=== PATIENT | female | born 2000 | race Caucasian/White ===

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

== ENCOUNTER 2022-03-29 12:49 | Outpatient (CLI) | payer OTHER, SELFPAY ==
[2022-03-29 13:10] LABS: Basophils Percent Auto 0.4 % (0.2-1.2); Eosinophils Absolute Auto 0.1 K/mm3 (0-0.3); Eosinophils Percent Auto 1.6 % (0-4.4); Hematocrit 42.3 % (37.0-47.0); Hemoglobin 14.8 g/dL (12.0-15.0); Immature Granulocyte Absolute 0.02 K/mm3 (0.00-0.031); Immature Granulocyte Percent A 0.3 % (0-0.5); Lymphocytes Absolute Auto 2.94 K/mm3 (0.9-3.2); Mean Corpuscular Hemoglobin 32.5 pg (26-34); Mean Platelet Volume 9.3 fl (7.4-10.4); Monocytes Absolute Auto 0.5 K/mm3 (0.1-0.6); Neutrophils Absolute Auto 4.1 K/mm3 (1.3-6.7); Neutrophils Percent Auto 52.7 % (45.5-73.1); Platelet Count Result 209 k/mm3 (150-375); Red Blood Count 4.55 M/mm3 (4.2-5.4); Red Cell Distribution Width 11.4 % (11.5-14.5); White Blood Count 7.7 K/mm3 (4.5-10.0)
[2022-03-29 13:20] LABS: SPREG INTERNAL CONTROL Positive; Serum Qual hCG Negative
[2022-03-29 13:21] LABS: Alanine Aminotransferase 17 U/L (6-35); Albumin Level 4.6 g/dL (3.7-5.6); Alkaline Phosphatase 63 U/L (45-116); Anion Gap 14 mmol/L (8-16); Aspartate Amino Transferase 23 U/L (14-36); Bilirubin,Total 0.4 mg/dL (0.2-1.3); Blood Urea Nitrogen 10 mg/dL (8-21); Calcium 9.3 mg/dL (8.9-10.7); Carbon Dioxide 21 mmol/L (22-30); Chloride 103 mmol/L (98-107); Estimated Glomerular Filt Rate > 60; Glucose 100 mg/dL (65-110); Potassium 3.6 mmol/L (3.4-5.0); Sodium 138 mmol/L (134-143)
[2022-03-29 13:41] LABS: Hemoglobin A1C 4.7 % (<5.7)
== END 2022-03-29 12:50 | disposition home or self-care (01) ==
LOC: ANHLAB 12:52
PROVIDERS: PCP Family Medicine; Visit Provider Family Medicine
DX: R42 Dizziness and giddiness (principal); Z83.3 Family history of diabetes mellitus
CPT/HCPCS: 36415; 80053; 83036; 84443; 84703; 85025

== ENCOUNTER 2022-04-03 18:55 | Emergency (ER) | payer OTHER, SELFPAY ==
[2022-04-03] VITALS (12 sets, daily range): BP systolic 91–122; BP diastolic 54–71; PULSE 98; RESP 20; TEMP 36.7; O2SAT 96–100
--- NOTE | ~2022-04-03 | CT_ITS ---
EXAMINATION: CT brain wo con INDICATION: Headache COMPARISON: None TECHNIQUE: Standard unenhanced head CT. The dose-length product (DLP) was 605.33 mGy-cm. The mA was a djusted according to patient size. Iterative reconstruction technique was employed. FINDINGS: There is no intracranial hemorrhage, acute infarction, or abnormal mass lesion. The ventric les are normal. There is no abnormal mass effect or midline shift. The washburn-white matter differentiat ion is normal. The basal cisterns are patent. The orbits are normal. The paranasal sinuses, mastoids and calvarium are normal. IMPRESSION: 1. No acute intracranial abnormality. Reviewed, dictated and finalized at location F.
--- NOTE | 2022-04-03 22:07 | ED.HA ---
HPI - Headache General Chief Complaint: Headache <TODD Hopkins Last Filed: 04/03/22 23:43> Stated Complaint: migraine for over a week <TODD Hopkins Last Filed: 04/03/22 23:43> Time Seen by Provider: 04/03/22 21:43 <TODD Hopkins Last Filed: 04/03/22 23:43> Source: patient <TODD Hopkins Last Filed: 04/03/22 23:43> Mode of arrival: ambulatory <TODD Hopkins Last Filed: 04/03/22 23:43> Limitations: no limitations <TODD Hopkins Last Filed: 04/03/22 23:43> History of Present Illness HPI Narrative: This is a 21-year-old female that presents to the emergency department for worsening headaches. Reports longstanding history of headaches. She was recently prescribed rizatriptan for this with little relief. She follows with her primary doctor for her headaches. She has not taken anything for her headache yet today. Associated with some nausea. Reports the pain is achy in nature. Denies fever, vision changes, vomiting, numbness, or weakness. <TODD Hopkins Last Filed: 04/03/22 23:43> Related Data Home Medications: Home Medications Medication Instructions Recorded Confirmed medroxyprogesterone 150 mg/mL mg IM 09/04/19 03/21/22 intramuscular suspension <TODD Hopkins Last Filed: 04/03/22 23:43> Allergies/Adverse Reactions: Allergies Allergy/AdvReac Type Severity Reaction Status Date / Time venom-wasp Allergy Intermediate Anaphylactic Verified 04/03/22 19:17 Shock fluticasone [From Flonase] AdvReac Mild epistaxis Verified 04/03/22 19:17 Bumble Bee Allergy Mild Anaphylactic Uncoded 04/03/22 19:17 Shock <TODD Hopkins Last Filed: 04/03/22 23:43> Review of Systems Review of Systems: CONSTITUTIONAL: Denies fever EYES: Denies visual changes GASTROINTESTINAL: Denies vomiting NEUROLOGIC: Reports headache. Denies numbness, or weakness. <Ryann Smith PA-C - Last Filed: 04/03/22 23:43> All systems reviewed & are unremarkable except as noted in HPI and below <Ryann Smith PA-C - Last Filed: 04/03/22 23:43> PMFSH Past Medical History Medical History: Medical History (Updated 04/04/22 @ 00:00 by Background Dawallace) History of migraine <Ryann Smith PA-C - Last Filed: 04/03/22 23:43> Surgical History Surgical History: Surgical History H/O wisdom tooth extraction No significant past surgical history <Ryann Smith PA-C - Last Filed: 04/03/22 23:43> Family History Family History: Family History Grandparent Hypertension Acute myocardial infarction Grandparent Hypertension Mother Lung disease <Ryann Smith PA-C - Last Filed: 04/03/22 23:43> Social History Social History: Social History Smoking status: Never smoker Alcohol intake: never Substance use: never 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 HEAD: Normocephalic, atraumatic. EYES: PERRLA and EOMI. ENT: Nares clear, no rhinorrhea or epistaxis. Mucous membranes moist. Oropharynx without tonsillar hypertrophy exudate or other lesions. Bilateral TMs pearly washburn non-bulging NECK: Supple. No adenopathy or masses. CHEST: Clear to auscultation. No respiratory distress. No wheezes rales or rhonchi HEART: Regular rate and rhythm. No murmur heard. Normal peripheral pulses. EXTREMITIES: Normal range of motion. No edema. Strength equal in bilateral upper and lower extremities (5/5) SKIN: Warm, dry, no rash. NEURO: No focal deficits. Alert and oriented x3. Cranial ne
[2022-04-03] MEDS: diphenhydrAMINE HCl INJ 50 MG/ML VIAL 25 MG IV PUSH (22:44)
[2022-04-03] MEDS: KETOROLAC 15 MG/ML VIAL (*BKC) IV PUSH (22:44)
[2022-04-03] MEDS: SODIUM CHLORIDE 0.9% IV 1,000 ML 999 ML IV CONT (22:44)
[2022-04-03] MEDS: METOCLOPRAMIDE HCL INJ 10 MG/2 ML VIAL IV PUSH (22:44)
--- NOTE | 2022-04-03 23:39 | PC.NURSE ---
Patient resting at this time
--- NOTE | 2022-04-25 08:30 | PC.NURSE ---
LATE ENTRY This note is being entered to document information to the patient's record. The following information was omitted on [04/03/22], by [Rhea Rosenbaum RN]. IV NS stopped at 2330
== END 2022-04-03 23:58 | disposition home or self-care (01) ==
PROVIDERS: Emergency Provider Preventive Medicine Aerospace Medicine; PCP Family Medicine
DX: R51.9 Headache, unspecified (principal)
CPT/HCPCS: 70450; 96361; 96365; 96375; 99284; J0131; J1200; J1885; J2765; J7030

== ENCOUNTER 2022-05-09 08:26 | Emergency (ER) | payer OTHER, SELFPAY ==
[2022-05-09 08:35] VITALS: BP 112/59; PULSE 95; RESP 16; TEMP 36.9; O2SAT 100
--- NOTE | 2022-05-09 08:59 | ED.URI ---
HPI - URI/Sore Throat General Chief Complaint: Upper Respiratory Infection Stated Complaint: Sore Throat, Fever Time Seen by Provider: 05/09/22 08:59 History of Present Illness HPI Narrative: 21-year-old female presented for complaint of sore throat, headache, and fever for 3 days. Endorses fever up to 101.6 yesterday. She has taken Tylenol for symptoms. She endorses her boyfriend had similar symptoms last week. She denies vomiting, diarrhea, cough, shortness of breath or wheezing. She denies difficulty swallowing secretions. Related Data Home Medications Medication Instructions Recorded Confirmed medroxyprogesterone 150 mg/mL 150 mg IM DIRECTED 09/04/19 05/09/22 intramuscular suspension escitalopram oxalate 10 mg tablet 10 mg PO DAILY 05/09/22 05/09/22 Allergies Allergy/AdvReac Type Severity Reaction Status Date / Time venom-wasp Allergy Intermediate Anaphylactic Verified 04/03/22 19:17 Shock fluticasone [From Flonase] AdvReac Mild epistaxis Verified 04/03/22 19:17 Bumble Bee Allergy Mild Anaphylactic Uncoded 04/03/22 19:17 Shock Review of Systems Review of Systems: CONSTITUTIONAL: Reports fever EYES: Denies visual changes, redness, or discharge. ENT: Denies rhinorrhea, congestion, or otalgia. CARDIOVASCULAR: Denies chest pain, palpitations, or edema. RESPIRATORY: Denies dyspnea. GASTROINTESTINAL: Denies abdominal pain, vomiting, or diarrhea. SKIN: Denies rash, itching, or wounds. MUSCULOSKELETAL: Denies back pain, joint pain, or myalgia. 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 TMs pearly washburn with normal light reflex bilaterally; no tragal tenderness. Oropharynx erythematous Tonsillar swelling 2+ and exudate. No drooling, no hoarseness, no trismus, uvula midline. No tripod positioning, hot potato voice, or soft palate swelling. NECK: Supple. Bilateral anterior cervical lymphadenopathy CHEST: Clear to auscultation, breath sounds equal. No respiratory distress, speaks in full sentences. HEART: Regular rate and rhythm. No murmur heard. SKIN: Warm, dry, no rash. NEURO: Alert and oriented x3. Course Course Emergency Course: Patient is aware of diagnosis, understands and agrees to treatment plan. Anticipatory guidance given. Patient agrees to follow-up as directed and is aware of reasons to seek care at the emergency department. Portions of this record may have been created with voice recognition software Level of Care: Express Care Visit Vital Signs Vital signs: Vital Signs Temperature 98.5 F 05/09/22 08:35 Pulse Rate 95 05/09/22 08:35 Respiratory Rate 16 05/09/22 08:35 Blood Pressure 112/59 L 05/09/22 08:35 Pulse Oximetry 100 05/09/22 08:35 Oxygen Delivery Room Air 05/09/22 08:35 Temperature 98.5 F 05/09/22 08:35 Pulse Rate 95 05/09/22 08:35 Respiratory Rate 16 05/09/22 08:35 Blood Pressure 112/59 L 05/09/22 08:35 Pulse Oximetry 100 05/09/22 08:35 Oxygen Delivery Room Air 05/09/22 08:35 MDM - URI/Sore Throat MDM Narrative Medical decision making narrative: Positive tr
== END 2022-05-09 09:20 | disposition home or self-care (01) ==
PROVIDERS: Emergency Provider Nurse Practitioner Family; PCP Family Medicine
DX: J02.0 Streptococcal pharyngitis (principal); Z20.822 Contact with and (suspected) exposure to COVID-19
CPT/HCPCS: 87426; 87804; 87880; 99213; C9803; G0463

== ENCOUNTER 2022-11-26 13:46 | Emergency (ER) | payer OTHER, SELFPAY ==
[2022-11-26] VITALS (22 sets, daily range): BP systolic 94–115; BP diastolic 47–68; PULSE 76–99; RESP 13–24; TEMP 37.2; O2SAT 97–100
--- NOTE | ~2022-11-26 | XR_ITS ---
EXAMINATION: XR chest 2V DATE: 11/26/2022 15:24 INDICATION: Chest pain and dizziness TECHNIQUE: PA and lateral views of the chest were obtained. COMPARISON: Chest radiograph dated 09/04/2019 FINDINGS: The lungs are clear with no focal airspace opacities, pulmonary edema, pleural effusion or pneumothor ax. The cardiomediastinal silhouette is normal. Visualized bones and soft tissues are unremarkable. IMPRESSION: 1. No acute cardiopulmonary disease. Reviewed, dictated and finalized at location B.
--- NOTE | 2022-11-26 14:18 | ECG_ITS ---
Measurements Intervals [place] Rate: 91 P: 67 AL: 129 QRS: 79 QRSD: 92 T: 55 QT: 334 QTc: 412 Interpretive Statements SINUS RHYTHM NORMAL ECG NO PREVIOUS ECG AVAILABLE FOR COMPARISON Electronically Signed On 11-26-2022 14:34:09 CDT by Orion Wilkins D.O.
[2022-11-26 14:40] LABS: Basophils Percent Auto 0.4 % (0.2-1.2); Eosinophils Absolute Auto 0.1 K/mm3 (0-0.3); Eosinophils Percent Auto 1.5 % (0-4.4); Hematocrit 41.5 % (37.0-47.0); Immature Granulocyte Absolute 0.02 K/mm3 (0.00-0.031); Immature Granulocyte Percent A 0.3 % (0-0.5); Lymphocytes Absolute Auto 2.49 K/mm3 (0.9-3.2); Lymphocytes Percent Auto 33.8 % (18.3-44.2); Mean Corpuscular HGB Conc 33.7 g/dl (32-36); Mean Corpuscular Hemoglobin 32.9 pg (26-34); Mean Corpuscular Volume 97.4 fl (80-100); Mean Platelet Volume 9.3 fl (7.4-10.4); Monocytes Absolute Auto 0.6 K/mm3 (0.1-0.6); Monocytes Percent Auto 7.6 % (2.6-8.5); Neutrophils Absolute Auto 4.2 K/mm3 (1.3-6.7); Neutrophils Percent Auto 56.4 % (45.5-73.1); Platelet Count Result 202 k/mm3 (150-375); Red Blood Count 4.26 M/mm3 (4.2-5.4); Red Cell Distribution Width 11.9 % (11.5-14.5); White Blood Count 7.4 K/mm3 (4.5-10.0)
[2022-11-26 14:45] LABS: Prothrombin Time 13.5 Seconds (11.1-14.7)
[2022-11-26 14:46] LABS: Alanine Aminotransferase 32 U/L (6-35); Albumin Level 4.4 g/dL (3.5-5.1); Alkaline Phosphatase 62 U/L (38-126); Anion Gap 7 mmol/L (8-16); Aspartate Amino Transferase 26 U/L (14-36); Bilirubin,Total 0.4 mg/dL (0.2-1.3); Blood Urea Nitrogen 11 mg/dL (7-17); Calcium 9.3 mg/dL (8.4-10.2); Carbon Dioxide 29 mmol/L (22-30); Chloride 103 mmol/L (98-107); Estimated CRCL calculation 99 ml/min; Estimated Glomerular Filt Rate > 60; Glucose 90 mg/dL (65-110); Lipase 68 U/L (23-300); Partial Thromboplastin Time 33.7 SECONDS (22.3-36.8); Potassium 3.6 mmol/L (3.4-5.0); Sodium 139 mmol/L (137-145)
[2022-11-26 14:57] LABS: Troponin I < 0.012 ng/mL (0.000-0.034)
[2022-11-26 18:10] LABS: Troponin I < 0.012 ng/mL (0.000-0.034)
--- NOTE | 2022-11-26 19:00 | ED.DIZZY ---
HPI - Dizziness General Chief Complaint: Dizziness <TODD Marroquin Last Filed: 11/27/22 01:32> Stated Complaint: dizzy <TODD Marroquin Last Filed: 11/27/22 01:32> Time Seen by Provider: 11/26/22 17:35 <TODD Marroquin Last Filed: 11/27/22 01:32> Source: patient <TODD Marroquin Last Filed: 11/27/22 01:32> Mode of arrival: ambulatory <TODD Marroquin Last Filed: 11/27/22 01:32> Limitations: no limitations <TODD Marroquin Last Filed: 11/27/22 01:32> History of Present Illness HPI Narrative: This is a 22-year-old female who presents to the ED with chief complaint of lightheadedness x2 days. Patient reports she had a bad sunburn on her forehead, face and ears after attending an all day event on Saturday. Reports having some lightheadedness and feeling faint. Also reports some nausea. Feels like she may have sun poisoning. Reports intermittent chest pains but is not having any now. Denies shortness of breath, fevers, chills, abdominal pain, diarrhea. <TODD Marroquin Last Filed: 11/27/22 01:32> Related Data Home Medications: Home Medications Medication Instructions Recorded Confirmed escitalopram oxalate 10 mg tablet 10 mg PO DAILY 05/09/22 05/09/22 <TODD Marroquin Last Filed: 11/27/22 01:32> Allergies/Adverse Reactions: Allergies Allergy/AdvReac Type Severity Reaction Status Date / Time venom-wasp Allergy Intermediate Anaphylactic Verified 11/28/22 11:45 Shock fluticasone [From Flonase] AdvReac Mild epistaxis Verified 11/28/22 11:45 Bumble Bee Allergy Mild Anaphylactic Uncoded 11/28/22 11:45 Shock <OTDD Marroquin Last Filed: 11/27/22 01:32> Review of Systems Review of Systems: CONSTITUTIONAL: Denies fever, chills, or sweats. EYES: Denies visual changes, redness, or discharge. ENT: Denies rhinorrhea, congestion, sore throat, or otalgia. CARDIOVASCULAR: Denies chest pain, palpitations, or edema. RESPIRATORY: Denies cough or dyspnea. GASTROINTESTINAL: See HPI GENITOURINARY: Denies dysuria or hematuria. SKIN: Denies rash or itching. MUSCULOSKELETAL: Denies back pain, joint pain, or myalgia. NEUROLOGIC: Denies headache, numbness, dizziness, or weakness. PSYCHIATRIC: Denies anxiety or depression. <Sami Martines PA-C - Last Filed: 11/27/22 01:32> PMFSH Past Medical History Medical History: Medical History History of migraine <TODD Marroquin Last Filed: 11/27/22 01:32> Surgical History Surgical History: Surgical History H/O wisdom tooth extraction No significant past surgical history <TODD Marroquin Last Filed: 11/27/22 01:32> Family History Family History: Family History Grandparent Hypertension Acute myocardial infarction Grandparent Hypertension Mother Lung disease <TODD Marroquin Last Filed: 11/27/22 01:32> Social History Social History: Social History Smoking status: Never smoker Alcohol intake: never Substance use: never Living arrangements: with family Occupation/Education: occupation 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 HEAD: Normocephalic, atraumatic. EYES: PERRLA and EOMI. ENT: Nares clear, no rhinorrhea or epistaxis. Mucous membranes moist. Oropharynx without tonsillar hypertrophy exudate or other lesions. NECK: Supple. No adenopathy or masses. CHEST: No respiratory distress. Clear to auscultation. No wheezes rales or rhonchi HEART: Regular rate and rhyt
[2022-11-26] MEDS: ONDANSETRON INJ 4 MG/2 ML VIAL IV PUSH (19:39)
[2022-11-26] MEDS: SODIUM CHLORIDE 0.9% IV 1,000 ML 999 ML IV CONT ×2 (19:39→20:33)
== END 2022-11-26 21:19 | disposition home or self-care (01) ==
PROVIDERS: Emergency Medicine; Emergency Provider Physician Assistant; PCP Family Medicine
DX: R42 Dizziness and giddiness (principal); L55.0 Sunburn of first degree
CPT/HCPCS: 36415; 71046; 80053; 83690; 84484; 85025; 85610; 85730; 93005; 96361; 96374; 99284; J2405; J7030

== ENCOUNTER 2023-05-13 16:58 | Outpatient (CLI) | payer OTHER, SELFPAY ==
[2023-05-13 17:22] LABS: Basophils Percent Auto 0.2 % (0.2-1.2); Eosinophils Absolute Auto 0.1 K/mm3 (0-0.3); Eosinophils Percent Auto 1.2 % (0-4.4); Hematocrit 41.8 % (37.0-47.0); Hemoglobin 13.9 g/dL (12.0-15.0); Immature Granulocyte Absolute 0.03 K/mm3 (0.00-0.031); Immature Granulocyte Percent A 0.3 % (0-0.5); Lymphocytes Absolute Auto 2.47 K/mm3 (0.9-3.2); Lymphocytes Percent Auto 28.7 % (18.3-44.2); Mean Corpuscular HGB Conc 33.3 g/dl (32-36); Mean Corpuscular Hemoglobin 32.1 pg (26-34); Mean Corpuscular Volume 96.5 fl (80-100); Mean Platelet Volume 9.4 fl (7.4-10.4); Monocytes Absolute Auto 0.6 K/mm3 (0.1-0.6); Monocytes Percent Auto 6.8 % (2.6-8.5); Neutrophils Absolute Auto 5.4 K/mm3 (1.3-6.7); Neutrophils Percent Auto 62.8 % (45.5-73.1); Platelet Count Result 202 k/mm3 (150-375); Red Blood Count 4.33 M/mm3 (4.2-5.4); Red Cell Distribution Width 11.4 % (11.5-14.5); White Blood Count 8.6 K/mm3 (4.5-10.0)
[2023-05-13 17:41] LABS: Alanine Aminotransferase 17 U/L (6-35); Albumin Level 4.8 g/dL (3.5-5.1); Alkaline Phosphatase 60 U/L (38-126); Anion Gap 9 mmol/L (8-16); Aspartate Amino Transferase 21 U/L (14-36); Bilirubin,Total 0.4 mg/dL (0.2-1.3); Blood Urea Nitrogen 16 mg/dL (7-17); Calcium 9.4 mg/dL (8.4-10.2); Carbon Dioxide 22 mmol/L (22-30); Chloride 106 mmol/L (98-107); Creatine Kinase 81 U/L (30-135); Estimated Glomerular Filt Rate > 60; Glucose 85 mg/dL (65-110); Potassium 3.8 mmol/L (3.4-5.0); Sodium 137 mmol/L (137-145)
[2023-05-13 18:16] LABS: Rheumatoid Factor < 12.0 IU/ML (<12)
[2023-05-13 18:32] LABS: Erythrocyte Sedimentation Rate 15 mm/hr (0-20)
[2023-05-15 13:08] LABS: Anti Cyclic Citrullinated Pept <16 Units (<20)
== END 2023-05-13 16:59 | disposition home or self-care (01) ==
LOC: ANHLAB 17:00
PROVIDERS: PCP Family Medicine; Visit Provider Physician Assistant Medical
DX: M25.50 Pain in unspecified joint (principal); M79.10 Myalgia, unspecified site; R53.83 Other fatigue
CPT/HCPCS: 36415; 80053; 82550; 82607; 84443; 85025; 85652; 86038; 86200; 86430

== ENCOUNTER 2023-10-29 08:03 | Outpatient (CLI) | payer OTHER, SELFPAY ==
--- NOTE | 2023-11-05 16:25 | WPDHOLTEREM ---
Holter/Event Monitor Holter/Event Monitor Date of procedure: 10/29/23 Holter/Event Procedure: 48 Hr Holter Monitor Indications: Chest pain Conclusion: 1. 48 hour holter monitor on 10/29/23. 2. Underlying rhythm is sinus rhythm with sinus arrhythmia. HR range 53-164 bpm; average HR 90 bpm. HR at 164 bpm was at 18:37. 3. There are 1 premature supraventricular complexes and 2 supraventricular couplets. No supraventricular tachycardia. 4. No premature ventricular complexes. No ventricular tachycardia. 5. No sinoatrial or atrioventricular blocks. No significant pauses greater than 2 seconds. 6. Patient reports symptoms of chest pain which demonstrate sinus rhythm, HR range 75-133 bpm.
== END 2023-10-29 08:04 | disposition home or self-care (01) ==
PROVIDERS: PCP Family Medicine; Visit Provider Nurse Practitioner Family
DX: R07.89 Other chest pain (principal); R00.0 Tachycardia, unspecified
CPT/HCPCS: 93225; 93226

== ENCOUNTER 2024-01-27 09:04 | Emergency (ER) | payer OTHER, BC, SELFPAY ==
--- NOTE | ~2024-01-27 | XR_ITS ---
EXAMINATION: XR chest 2V DATE: 01/27/2024 09:48 INDICATION: Chest pain. TECHNIQUE: Frontal and lateral views of the chest were obtained. COMPARISON: Chest 2 views 11/26/2022 FINDINGS: There is no pneumonia, pleural effusion, or pneumothorax. The heart size is normal. IMPRESSION: 1. No acute cardiopulmonary disease. Reviewed, dictated and finalized at location A.
[2024-01-27 09:09] VITALS: BP 137/86; PULSE 100; RESP 16; TEMP 36.4; O2SAT 100
--- NOTE | 2024-01-27 09:09 | ECG_ITS ---
Test Date: 2024-01-27 09:14:40 Measurements Intervals [place] Rate: 95 P: 61 MS: 142 QRS: 81 QRSD: 88 T: 49 QT: 324 QTc: 407 Interpretive Statements SINUS RHYTHM NORMAL ECG No previous ECG available for comparison Electronically Signed On 01-27-2024 11:33:22 CDT by Orion Wilkins D.O.
[2024-01-27 09:45] LABS: Basophils Percent Auto 0.3 % (0.2-1.2); Eosinophils Absolute Auto 0.1 K/mm3 (0-0.3); Hematocrit 46.1 % (37.0-47.0); Hemoglobin 15.4 g/dL (12.0-15.0); Immature Granulocyte Absolute 0.03 K/mm3 (0.00-0.031); Immature Granulocyte Percent A 0.4 % (0-0.5); Lymphocytes Absolute Auto 1.92 K/mm3 (0.9-3.2); Lymphocytes Percent Auto 25.1 % (18.3-44.2); Mean Corpuscular HGB Conc 33.4 g/dl (32-36); Mean Corpuscular Hemoglobin 32.4 pg (26-34); Mean Corpuscular Volume 96.8 fl (80-100); Monocytes Absolute Auto 0.4 K/mm3 (0.1-0.6); Monocytes Percent Auto 5.6 % (2.6-8.5); Neutrophils Absolute Auto 5.2 K/mm3 (1.3-6.7); Neutrophils Percent Auto 67.6 % (45.5-73.1); Platelet Count Result 194 k/mm3 (150-375); Red Blood Count 4.76 M/mm3 (4.2-5.4); Red Cell Distribution Width 11.9 % (11.5-14.5); White Blood Count 7.6 K/mm3 (4.5-10.0)
[2024-01-27 09:50] VITALS: BP 127/81; PULSE 68; RESP 16; O2SAT 99
[2024-01-27 09:55] LABS: Alanine Aminotransferase 19 U/L (6-35); Albumin Level 4.8 g/dL (3.5-5.1); Alkaline Phosphatase 77 U/L (38-126); Anion Gap 8 mmol/L (4-12); Aspartate Amino Transferase 21 U/L (14-36); Bilirubin,Total 0.6 mg/dL (0.2-1.3); Blood Urea Nitrogen 13 mg/dL (7-17); Calcium 9.3 mg/dL (8.4-10.2); Carbon Dioxide 25 mmol/L (22-30); Chloride 108 mmol/L (98-107); Estimated CRCL calculation 82 ml/min; Estimated Glomerular Filt Rate > 60; Glucose 98 mg/dL (65-110); Potassium 3.6 mmol/L (3.4-5.0); Sodium 141 mmol/L (137-145)
[2024-01-27 10:01] VITALS: BP 132/86; PULSE 72; RESP 17; O2SAT 100
[2024-01-27 10:04] LABS: Prothrombin Time 13.5 Seconds (11.1-14.7)
[2024-01-27 10:05] LABS: Partial Thromboplastin Time 31.9 Seconds (22.3-36.8)
[2024-01-27 10:07] LABS: Troponin I < 0.012 ng/mL (0.000-0.034)
[2024-01-27 10:08] VITALS: O2SAT 100
[2024-01-27 10:12] LABS: D Dimer 0.27 ug/mL (<0.48)
[2024-01-27 10:15] VITALS: O2SAT 100
[2024-01-27 10:16] VITALS: BP 130/59; O2SAT 100
--- NOTE | 2024-01-27 10:31 | ED.CHESTPAIN ---
HPI - Chest Pain General Chief Complaint: Chest Pain Stated Complaint: chest pain Time Seen by Provider: 01/27/24 09:32 Source: patient Mode of arrival: ambulatory Limitations: no limitations History of Present Illness HPI narrative: patient is a 23-year-old female who presents the ED with report of anterior chest pain. Patient reports having intermittent episodes of chest pain since Saturday. She reports pain typically on right-sided chest, but does occasionally occur in her midsternal and left-sided chest. Pain worse with certain movements. She notes she did exercise her chest at the gym last Saturday, but denied any abnormal or overly strenuous exercises. denies alleviating factors. Reports painful occasionally worse with deep breathing. Reports occasional shortness of breath. Denies lower extremity pain or swelling, cough, fevers. Denies previous hx of blood clots. Denies recent long distance travel. She is on depo-provera. Mother has hx of pulmonary hypertension. No FHx of heart disease. Related Data Home Medications Medication Instructions Recorded Confirmed medroxyprogesterone 150 mg/mL 150 mg IM [id number] 05/10/23 11/29/23 intramuscular suspension (Depo-Provera) Allergies Allergy/AdvReac Type Severity Reaction Status Date / Time venom-wasp Allergy Intermediate Anaphylactic Verified 01/27/24 09:30 Shock rizatriptan [From Maxalt] AdvReac Severe Nausea Verified 01/27/24 09:30 fluticasone [From Flonase] AdvReac Mild epistaxis Verified 01/27/24 09:30 Bumble Bee Allergy Mild Anaphylactic Uncoded 10/15/23 08:22 Shock Review of Systems Review of Systems: CONSTITUTIONAL: Denies fever, chills, or sweats. ENT: Denies rhinorrhea, congestion, sore throat. CARDIOVASCULAR: see HPI. RESPIRATORY: See HPI. GASTROINTESTINAL: Denies abdominal pain, nausea, vomiting, or diarrhea. MUSCULOSKELETAL: Denies back pain, extremity pain, myalgia. All systems reviewed & are unremarkable except as noted in HPI and below PMFSH Past Medical History Medical History History of migraine Muscle cramps Surgical History Surgical History H/O wisdom tooth extraction No significant past surgical history Family History Family History Grandparent Hypertension Acute myocardial infarction Grandparent Hypertension Mother Lung disease Social History Social History Smoking status: Never smoker Alcohol intake: never Substance use: never Substance use type: does not use Lack of Transportation: No Lack of Food: Never True Current Housing: I Have Housing Concerned About Future Housing: No Difficulty Paying Gas/Electric Bills: No Difficulty Paying for Meds: No Currently Unemployed: No Difficulty w/ Childcare or Family Care: No Living arrangements: with family Occupation/Education: occupation 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 HEAD: Normocephalic, atraumatic. RESPIRATORY: Airway patent, respirations nonlabored. Clear to auscultation bilaterally, no rales, rhonchi, wheezing. CARDIOVASCULAR: Regular rate and rhythm without murmurs, rubs, or gallops. ABDOMINAL: Soft, no tenderness throughout abdomen, nondistended. Normoactive BS. MUSCULOSKELETAL: Moves all extremities. No gross deformities. No lower extremity edema. No calf tenderness. No tenderness to palpation throughout anterior chest wall. SKIN: Warm, dry, normal color. NEURO: A&O X3. Speech clear. Cranial nerves II-XII grossly inta
[2024-01-27] MEDS: KETOROLAC 30 MG/ML VIAL (*BKC) IV PUSH (10:43)
== END 2024-01-27 11:16 | disposition home or self-care (01) ==
PROVIDERS: Emergency Provider Physician Assistant; PCP Family Medicine
DX: R07.89 Other chest pain (principal)
CPT/HCPCS: 36415; 71046; 80053; 84484; 85025; 85380; 85610; 85730; 93005; 96374; 99284; J1885

== ENCOUNTER 2025-06-21 16:48 | Emergency (ER) | payer OTHER, BC, SELFPAY ==
--- NOTE | 2025-06-21 16:54 | ED_ITS ---
HPI - URI/Sore Throat General Chief Complaint: Upper Respiratory Infection Stated Complaint: sore throat Time Seen by Provider: 06/21/25 17:02 Source: patient, RN notes reviewed and old records reviewed Mode of arrival: ambulatory Limitations: no limitations History of Present Illness HPI Narrative: 24-year-old female presents to the [facility] with complaints of a sore throat since last night. Took a dose of ibuprofen. Reports that she had a fever of 99.8. Was diagnosed on 03 June was strep, finish the entire course of amoxicillin. Related Data Home Medications ?Medication ?Instructions ?Recorded ?Confirmed ?Last Taken ?Type No Home Medications 06/21/25 06/21/25 U nknown History Allergies Allergy/AdvReac Type Severity Reaction Status Date / Time venom-wasp Allergy Intermediate Anaphylactic Verified 06/21/25 17:01 Shock rizatriptan (From Maxalt) AdvReac Severe Nausea Verified 06/21/25 17:01 fluticasone (From Flonase) AdvReac Mild epistaxis Verified 06/21/25 17:01 Bumble Bee Allergy Mild Anaphylactic Uncoded 06/10/24 13:04 Shock Review of Systems Review of Systems: All systems reviewed & are unremarkable except as noted in HPI and below Constitutional: Constitutional: Reports no additional constitutional complaints ENT: Reports as per HPI and Reports sore throat Cardiovascular: Cardiovascular: Reports no additional cardiovascular complaints, Denies chest pain and Denies dyspnea Respiratory: Respiratory: Reports no additional respiratory complaints, Denies chest congestion, Denies cough and Denies dyspnea Musculoskeletal: Musculoskeletal: Reports no additional musculoskeletal complaints Integumentary/Breasts: Skin/Breast: Reports system reviewed and no additional complaints, except as docu PMFSH Past Medical History Medical History Muscle cramps History of migraine Surgical History Surgical History H/O wisdom tooth extraction No significant past surgical history Family History Family History Grandparent Hypertension Acute myocardial infarction Grandparent Hypertension Mother Lung disease Social History Social History Social History: 8/6/24 Patient is very confident filling out forms. Patient has received assistance with education costs in the past 12 months. 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 There is no relevant family history pertinent to the patient complaint. Exam Const: General: cooperative, healthy appearing, comfortable, no acute distress, well developed, alert and well nourished Nutritional Appearance: well nourished Orientation/consciousness: patient oriented x3 Limitations: no limitations HENMT: Head: normal to inspection Ears: hearing grossly normal bilaterally, external ears normal, TM's normal bilaterally, EAC's normal, mastoids normal and no periauricular adenopathy Face and sinus: normal facial exam Mouth: Yes Normal oral and palatal mucosa present, Yes lip normal, Yes tongue normal and Yes moist mucous membranes Throat: posterior oropharynx normal, uvula midline and no uvular edema Eyes: General: appearance normal, both eyes and all related structures Alignment and Position: alignment normal Neck: Neck: normal visual inspection, full ROM, no lymphadenopathy and no meningeal signs Chest: Chest palpation & inspection: normal inspection of the chest Resp: Effort & Inspection: normal respiratory effort and able to speak in complete sentences Auscultation: clear to auscultation bilaterally, no crackles, no rales, no rhonchi and no wheezes Cardio: Rate: regular rate Skin: General skin exam: normal color and no rashes or lesions noted Neuro: General: patient oriented x3, gait normal, moves all extremities and no meningeal signs Cognition (Neuro): normal cognition Speech: normal speech Gait exam (Neuro): Normal gait present Extrem: General: normal to inspection, full ROM, capillary refill normal and normal gait Psych: Appearance: grossly normal and well kempt Mental Status: mental status grossly normal Speech and movement: Normal speech and movement present and Clear speech present Affect: normal affect Attitude: cooperative Course Course Level of Care: Express Care Visit Vital Signs Vital signs: Vital Signs Temperature 97.8 F 06/21/25 16:55 Pulse Rate 92 06/21/25 16:55 Respiratory Rate 18 06/21/25 16:55 Blood Pressure 122/62 06/21/25 16:55 Pulse Oximetry 100 06/21/25 16:55 Oxygen Delivery Room Air 06/21/25 16:55 Temperature 97.8 F 06/21/25 16:55 Pulse Rate 92 06/21/25 16:55 Respiratory Rate 18 06/21/25 16:55 Blood Pressure 122/62 06/21/25 16:55 Pulse Oximetry 100 06/21/25 16:55 Oxygen Delivery Room Air 06/21/25 16:55 Reviewed MDM - URI/Sore Throat MDM Narrative Medical decision making narrative: patient sitting in exam room. Patient is nontoxic, vitals stable. Patient presents with sore throat since last night. Has taken ibuprofen. Strep test is negative. Patient is appropriate for outpatient treatment with close follow-up Discharge instructions reviewed with patient, as well as provided in writing per nursing staff. The instructions also include specific and strict return/GO TO THE ER as well as f/u information. All questions have been answered, and the patient deny any further questions with discharge and discharge plan. Some parts of this dictation were generated by voice recognition software and may contain typographical and/or grammatical inaccuracies. Differential Diagnosis Differential diagnosis: Likely upper respiratory infection, otitis media, sinusitis, viral infection, bronchitis, influenza and pharyngitis Lab Data Labs: Lab Results 06/21/25 Range/Units 17:08 POC Grp A Strep Screen Negative (Negative) reviewed Critical Care Time Critical Care Time Critical Care Time: No Discharge Plan Discharge Clinical Impression: Pharyngitis Qualifiers: Pharyngitis/tonsillitis etiology: unspecified etiology Qualified Code(s): J02.9 - Acute pharyngitis, unspecified Patient Disposition: Home Condition: Stable Instructions: Antibiotic Form, Pharyngitis (ED) Additional Instructions: Your rapid strep swab was negative today at [facility]. A throat culture will be sent to the laboratory for further testing. If the test is positive, you will receive a phone call within 48 hours and an appropriate antibiotic will be initiated at that time. Your symptoms are likely due to a viral illness, which is not treated with antibiotics. Typically viral infections last 7-10 days, can linger for couple of weeks. It is very important to treat your symptoms. Drink plenty of water, Gatorade, Pedialyte, ice pops or Jell-O. -Alternate Tylenol and Motrin per package directions for fever or pain. You can alternate every 4 hours -Antihistamine medication such as Zyrtec/Claritin/Antoinette during the day can help improve symptoms. -Eat and drink things that are easy to swallow, like tea or soup, or popsicles. -Oral rinses such as: Salt water gargles and/or may use topical anesthetic (eg. Chloraseptic spray) or lozenges to relieve dryness or throat pain). 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 -Using a vaporizer or humidifier at night will also help thin secretions and help with coughing up phlegm. -Follow up with primary care provider in 7-10 days if condition is not improving - For new or worsening symptoms go directly to the nearest ER Patient Language: New Zealander Prescriptions: No Action No Home Medications Follow-up/Referrals: Jacquie,Bernadette Alcantara APRN [Primary Care Provider, Unknown] - 2 Weeks Clinical Impression: Pharyngitis Stand Alone Forms: Work/School Release IP Time of Disposition: 17:13
[2025-06-21 16:55] VITALS: BP 122/62; PULSE 92; RESP 18; TEMP 36.6; O2SAT 100
[2025-06-21 17:11] LABS: EDSTREPNEGPOS1 Negative (Negative)
== END 2025-06-21 17:20 | disposition home or self-care (01) ==
PROVIDERS: Emergency Provider Nurse Practitioner; PCP Nurse Practitioner
DX: J02.9 Acute pharyngitis, unspecified (principal)
CPT/HCPCS: 87081; 87880; 99213; G0463